=== PATIENT | female | born 1995 | race American Indian/Alaskan Native ===

== ENCOUNTER 2017-06-19 03:37 | Outpatient (CLI) | payer MEDICAID ==
[2017-06-19 06:05] VITALS: BP 104/59
[2017-06-20] MEDS ORDERED: NACL BACTERIOSTATIC INFILTRATI ONE (08:24)
== END 2017-06-19 04:30 | disposition home or self-care (01) ==
LOC: TRG 03:37
PROVIDERS: ATTEND Obstetrics & Gynecology
DX: O47.1 False labor at or after 37 completed weeks of gestation (principal); Z3A.37 37 weeks gestation of pregnancy

== ENCOUNTER 2017-06-29 15:19 | Inpatient (IN) | payer MEDICAID ==
[2017-06-29] MEDS ORDERED: MINERAL OIL PO PRN (15:31)
[2017-06-29] MEDS ORDERED: SUBLIMAZE IV PRN (15:31)
[2017-06-29] MEDS ORDERED: ZOFRAN IV PRN (15:31)
[2017-06-29] MEDS ORDERED: BRETHINE SUB-Q PRN (15:31)
[2017-06-29] MEDS ORDERED: ePHEDrine SULFATE IV PRN ×2 (15:31→18:03)
[2017-06-29] MEDS ORDERED: XYLOCAINE 2% INFILTRATI ONE (15:31)
--- NOTE | 2017-06-29 15:37 | History and Physical Report ---
History of Present Illness Date of examination: 06/29/17 Date of admission: 06/29/17 15:19 Chief complaint: 21 y/o @ 39+2 weeks, 7cms in office. History of present illness: EDC Calculations by LMP: 07/04/2017 Past History : 2 Term Births: 1 Premature Births: 0 Living Children: 1 Para: 1 Mult. Births: 0 Prev : 0 Prev. attempt? 0 Aborta: 0 Elect. Ab: 0 Spont. Ab: 0 Ectopics: 0 # 1 Delivery date: 02/20/2016 Weeks Gestation: 37 labor: no Delivery type: Hours of labor: 24 Anesthesia type: epidural Delivery location: [facility] Sex: Female weight: 6-0 Name: Anu Past Medical History: Asthma Family History Summary: Other family member - Has No Family History of Ovarvian Cancer - Entered On: Other family member - Has No Family History of Colon Cancer - Entered On: 2016 Other family member - Has No Family History of Breast Cancer - Entered On: 2016 Social History: Patient is single/engaged unemployed Risk Factors: Smoked Tobacco Use: Never smoker Drug use: yes Substance: marijuana Comments: Occsssionally Alcohol use: no Dietary Counseling: pn yes Past Medical History Abnormal PAP: negative Social Hx: Patient is single/engaged unemployed Infection History Hx of STD: none Active Medications (reviewed today): None Current Allergies (reviewed today): No known allergies Past History - Obstetrical History Expected Date of Delivery: 07/04/17 Actual Gestation: 39 Week(s) 2 Day(s) : 2 Para: 1 Hx # Term Pregnancies: 1 Number of Pregnancies: 0 Spontaneous Abortions: 0 Induced : 0 Number of Living Children: 1 Medications and Allergies Allergies Allergy/AdvReac Type Severity Reaction Status Date / Time No Known Drug Allergies Allergy Unknown Verified 02/19/16 23:54 Home Medications Medication Instructions Recorded Confirmed Last Taken Type Vit-Fe Fumar-FA [ 1 tab PO DAILY 06/19/17 06/19/17 06/18/17 10: 00 History Vitamin] Review of Systems All systems: negative - Physical Exam Breasts: Positive: normal Cardiovascular: Regular rate Lungs: Positive: Clear to auscultation, Normal air movement Abdomen: Positive: normal appearance, soft, normal bowel sounds Genitourinary (Female): Positive: normal external genitalia, normal perenium Vulva: both: normal Vagina: Positive: normal moisture Uterus: Positive: normal size Anus/Rectum: Positive: normal perianal skin Extremities: Positive: normal Deep Tendon Reflex Grade: Normal +2 - Obstetrical FHR: auscultation normal Uterine Contraction Monitor Mode: External Cervical Dilatation: 7 Cervical Effacement Percentage: 90 station: 0 Uterine Contraction Pattern: Irregular Uterine Tone Measurement Phase: Resting Results All other labs normal. Current OB Labs Blood Type: O (12/29/2016) Rh Type: positive (12/29/2016) Rh Antibody Screen: negative (12/29/2016) Hgb: 13.4 (12/29/2016) Hct: 40.0 (12/29/2016) Platelets: 229 (12/29/2016) Rubella: immune (12/29/2016) RPR: nonreactive (12/29/2016) Hep B Surface Antigen: negative (12/29/2016) Pap Smear: normal (12/29/2016) Patient: BOBBY BALDERRAMA ID: [id number] Note: All result statuses are Final unless otherwise noted. Tests: (1) Strep Gp B PETER ([id number]) Order Note: Clinical Information: SRC:VR ! Strep Gp B PETER Negative Negative *1 Assessment and Plan 21y/o @ 39+2, labor, GBS neg, late transfer of care to our practice. Admission orders in chart. plan for epidural BILLY. - Patient Problems (1) Active labor at term Current Visit: Yes Status: Acute (2) 39 weeks gestation of Current Visit: Yes Status: Acute
[2017-06-29] MEDS ORDERED: PITOCin/NS 20 UNIT/1000ML DRIP 20 UNITS/1,000 ML BAG IV SCH ×2 (16:00→20:59)
[2017-06-29] MEDS ORDERED: PITOCin/NS 30 UNIT/500ML 30 UNITS/500 ML BAG IV SCH (16:00)
[2017-06-29 16:32] LABS: Hematocrit 31.3 % (30.3-42.9); Hemoglobin 10.5 gm/dl (10.1-14.3); Mean Corpuscular HGB Conc 33 % (30-34); Mean Corpuscular Hemoglobin 28 pg (28-32); Mean Corpuscular Volume 83 fl (79-97); Platelet Count 203 K/mm3 (140-440); Red Blood Count 3.79 M/mm3 (3.65-5.03); Red Cell Distribution Width 14.8 % (13.2-15.2); White Blood Count 8.5 K/mm3 (4.5-11.0)
[2017-06-29] MEDS: LACTATED RINGERS 1,000 ML IV SCH ×2 (17:13→17:35)
[2017-06-29] MEDS ORDERED: NARCAN 2 MG/2 ML IV PRN (18:03)
--- NOTE | 2017-06-29 18:03 | Anesthesia Consultation ---
Anesthesia Consult and Med Hx Date of service: 06/29/17 - Airway Anesthetic Teeth Evaluation: Good ROM Head & Neck: Adequate Mental/Hyoid Distance: Adequate Intubation Access Assessment: Probably Good - Pre-Operative Health Status ASA Pre-Surgery Classification: ASA2, Emergency Proposed Anesthetic Plan: Epidural, Spinal - Pulmonary Hx Asthma: No COPD: No Hx Pneumonia: No - Cardiovascular System Hx Hypertension: No - Central Nervous System Hx Seizures: No Hx Psychiatric Problems: No - Endocrine Hx Renal Disease: No Hx End Stage Renal Disease: No Hx Hypothyroidism: No Hx Hyperthyroidism: No - Hematic Hx Anemia: No Hx Sickle Cell Disease: No - Other Systems Hx Alcohol Use: No
[2017-06-29] MEDS ORDERED: CYTOTEC PR ONE (18:50)
[2017-06-29] MEDS ORDERED: CYTOTEC ONE (18:50)
--- NOTE | 2017-06-29 18:55 | Procedure Note ---
OB Delivery Note - Delivery Date of Delivery: 06/29/17 ( Male) [employer] Agent: PAPA NICOLE Estimated blood loss: 500cc - Vaginal Delivery presentation: vertex Delivery position: OA Intrapartum events: hemorrhage Delivery induction: none Delivery augmentation: rupture of membranes, pitocin Delivery monitor: external FHT, external uterine Route of delivery: Delivery placenta: spontaneous Delivery cord: 3 umbilical vessels Episiotomy: none Delivery laceration: none Anesthesia: epidural Delivery comments: male del OLMAN over intact perineum. placed skin to skin on mother' s abd, 3 vessel cord clamped and cut, cord blood collected. placenta del intact and complete. no lacerations to repair. fundus initially firm but became boggy, firmed w/ massage. 800mcg Cytotec placed rectally. EBL 500. infant's apgars 8/9, wt 7#4oz. mother and infant remain LDR stable. - A at 1 minute: 8 at 5 minutes: 9 Infant Gender: Male (7#4oz)
[2017-06-29] MEDS ORDERED: fentaNYL-BUPIV 2 MCG/ML-0.125% 200 MCG/100 ML BAG EPIDURAL SCH (19:00)
[2017-06-29] MEDS ORDERED: TUCKS PAD TP PRN (20:59)
[2017-06-29] MEDS ORDERED: NORCO 5/325 PO PRN (20:59)
[2017-06-29] MEDS ORDERED: SODIUM CHLORIDE FLUSH SYRINGE 10 ML IV PRN (20:59)
[2017-06-29] MEDS ORDERED: MILK OF MAGNESIA PO PRN (20:59)
[2017-06-29] MEDS ORDERED: PHENERGAN PO PRN (20:59)
[2017-06-29] MEDS ORDERED: BENADRYL PO PRN (20:59)
[2017-06-29] MEDS ORDERED: DULCOLAX PR PRN (20:59)
[2017-06-29] MEDS ORDERED: TYLENOL PO PRN (20:59)
[2017-06-29] MEDS ORDERED: LANSINOH TP PRN (20:59)
[2017-06-29] MEDS: MOTRIN PO SCH (21:13)
[2017-06-29] MEDS: COLACE PO SCH (21:13)
[2017-06-30] MEDS: MOTRIN PO SCH ×3 (04:03→18:07)
[2017-06-30 07:31] LABS: Hematocrit 29.6 % (30.3-42.9); Hemoglobin 9.5 gm/dl (10.1-14.3)
[2017-06-30] MEDS ORDERED: PRENATAL VITAMIN PO SCH (10:00)
[2017-06-30] MEDS: COLACE PO SCH (11:21)
[2017-06-30] MEDS ORDERED: Fluarix Quad 2017-2018(36 MOS+) IM ONE (12:00)
--- NOTE | 2017-06-30 14:19 | Discharge Summary ---
Providers - Providers Date of Admission: 06/29/17 15:19 Date of discharge: 06/30/17 Attending physician: JESSICA GONZALEZ 06/29/17 20:59 Consult to Undercoat Sprayer [CONS] Routine Reason For Exam: assistance with , SNS Primary care physician: JESSICA GONZALEZ Hospitalization Condition: Good Hospital course: see dictation Disposition: DC-01 TO HOME OR SELFCARE - Discharge Diagnoses (1) (normal spontaneous vaginal delivery) Status: Acute Core Measure Documentation - Palliative Care Palliative Care/ Comfort Measures: Not Applicable - Core Measures Any of the following diagnoses?: none Exam - Physical Exam Narrative exam: No complaints, minimal bleeding, desires d/c home, will use depoprovera for contraception starting at 6weeks PP States she will not have her son circumcised - Constitutional Vitals: Temp Pulse Resp BP Pulse Ox 98.4 F 89 20 115/80 99 06/30/17 08:02 06/30/17 08:02 06/30/17 08:02 06/30/17 08:02 06/30/17 08:02 General appearance: Present: no acute distress (Breasts soft, NT, no engorgement , ) - Respiratory Respiratory effort: normal - Extremities Extremities: no ischemia, No edema - Abdominal Female genitourinary: Present: deferred (uterus below her umbilicus) - Rectal Rectal Exam: deferred - Integumentary Integumentary: Present: clear, warm, dry Plan Activity: other (No sex) Weight Bearing Status: Weight Bear as Tolerated Diet: regular Special Instructions: no heavy lifting Follow up with: JESSICA GONZALEZ MD [Primary Care Provider] - 6 Weeks Prescriptions: Ibuprofen [Motrin 800 MG tab] 800 mg PO Q8HR PRN #30 tablet PRN Reason: Pain Lidocain2.5%/Prilocai2.5% [Emla] 5 gm TP ONCE PRN #1 tube PRN Reason: Pain
[2017-06-30 19:19] VITALS: BP 115/81
[2017-07-01] MEDS ORDERED: BOOSTRIX IM ONE (06:00)
== END 2017-06-30 20:00 | disposition home or self-care (01) | DRG 775 ==
LOC: LD 15:19 → OB 21:01
PROVIDERS: ADMIT Obstetrics & Gynecology; ATTEND Obstetrics & Gynecology
PROC: 10E0XZZ Delivery of Products of Conception, External Approach (ICD-10-PCS; principal; 2017-06-29)
PROC: 3E0R3CZ (ICD-10-PCS; principal; 2017-06-29)
PROC: 00HU33Z Insertion of Infusion Device into Spinal Canal, Percutaneous Approach (ICD-10-PCS; 2017-06-29)
PROC: 3E0234Z Introduction of Serum, Toxoid and Vaccine into Muscle, Percutaneous Approach (ICD-10-PCS; 2017-06-29)
DX: O99.52 Diseases of the respiratory system complicating childbirth (principal); Z3A.39 39 weeks gestation of pregnancy; Z37.0 Single live birth; Z23 Encounter for immunization; O99.324 Drug use complicating childbirth; F12.90 Cannabis use, unspecified, uncomplicated
CPT/HCPCS: 36415; 85014; 85018; 85027; 86592; 86850; 86900; 86901; 90686; A6250; J2590; J7120

== ENCOUNTER 2018-06-11 20:40 | Emergency (ER) | payer MEDICAID ==
[2018-06-11] MEDS ORDERED: MOTRIN PO ONE ×2 (20:59→21:06)
[2018-06-11 21:06] VITALS: BP 122/80
[2018-06-11 21:40] LABS: Bacteria,Urine 1+ /HPF (Negative); Bilirubin,Urine NEG (Negative); Blood,Urine NEG (Negative); Color,Urine Yellow (Yellow); Mucus,Urine FEW /HPF; Protein,Urine <15 mg/dL mg/dL (Negative)
[2018-06-11 21:42] LABS: HCG Qualitative,Urine Negative (Negative)
--- NOTE | 2018-06-12 00:20 | Emergency Department Report ---
ED ENT HPI - General Chief complaint: Sore Throat Stated complaint: FLU LIKE SYMPTOMS Time Seen by Provider: 06/12/18 00:12 Source: patient Mode of arrival: Ambulatory Limitations: No Limitations - History of Present Illness Initial comments: 22-year-old female presents to the emergency room for 2 days of bilateral ear pain bodyaches sore throat fever and back pain. Patient denies any cough. Patient does admit that she has been drinking a lot for Coca- [employer]. He did not take anything for pain. She's had a subjective fever. MD complaint: sore throat Severity scale (0 -10): 9 (prior to pain medication) Quality: aching Consistency: intermittent Improves with: NSAID - Related Data Home Medications Medication Instructions Recorded Confirmed Last Taken Vit-Fe Fumar-FA [ 1 tab PO DAILY 06/19/17 06/30/17 06/18/17 10: 00 Vitamin] Previous Rx's Medication Instructions Recorded Last Taken Type Ibuprofen [Motrin 800 MG tab] 800 mg PO Q8HR PRN #30 tablet 06/29/17 Unknown Rx Lidocain2.5%/Prilocai2.5% [Emla] 5 gm TP ONCE PRN #1 tube 06/29/17 Unknown Rx Ibuprofen [Motrin 600 MG tab] 600 mg PO Q8H PRN #15 tablet 06/12/18 Unknown Rx Nitrofurantoin [place]/M-Cryst 100 mg PO Q12HR #14 capsule 06/12/18 Unknown Rx [Macrobid CAP] Allergies Allergy/AdvReac Type Severity Reaction Status Date / Time No Known Drug Allergies Allergy Unknown Verified 02/19/16 23:54 ED Dental HPI - General Chief complaint: Sore Throat Stated complaint: FLU LIKE SYMPTOMS Time Seen by Provider: 06/12/18 00:12 Source: patient Mode of arrival: Ambulatory Limitations: No Limitations - Related Data Home Medications Medication Instructions Recorded Confirmed Last Taken Vit-Fe Fumar-FA [ 1 tab PO DAILY 06/19/17 06/30/17 06/18/17 10: 00 Vitamin] Previous Rx's Medication Instructions Recorded Last Taken Type Ibuprofen [Motrin 800 MG tab] 800 mg PO Q8HR PRN #30 tablet 06/29/17 Unknown Rx Lidocain2.5%/Prilocai2.5% [Emla] 5 gm TP ONCE PRN #1 tube 06/29/17 Unknown Rx Ibuprofen [Motrin 600 MG tab] 600 mg PO Q8H PRN #15 tablet 06/12/18 Unknown Rx Nitrofurantoin [place]/M-Cryst 100 mg PO Q12HR #14 capsule 06/12/18 Unknown Rx [Macrobid CAP] Allergies Allergy/AdvReac Type Severity Reaction Status Date / Time No Known Drug Allergies Allergy Unknown Verified 02/19/16 23:54 ED Review of Systems ROS: Stated complaint: FLU LIKE SYMPTOMS Other details as noted in HPI Constitutional: fever (subjective), malaise ENT: ear pain (only with swallowing and has resolved since she's had Motrin), throat pain (resolved) Respiratory: denies: cough Gastrointestinal: denies: abdominal pain, nausea, diarrhea Musculoskeletal: back pain Neurological: denies: headache, weakness, paresthesias Psychiatric: denies: anxiety, depression Hematological/Lymphatic: denies: easy bleeding, easy bruising ED Past Medical Hx - Past Medical History Previous Medical History?: Yes Hx Hypertension: No Hx Congestive Heart Failure: No Hx Diabetes: No Hx Deep Vein Thrombosis: No Hx Renal Disease: No Hx Sickle Cell Disease: No Hx Seizures: No Hx Asthma: Yes Hx COPD: No Hx HIV: No - Surgical History Past Surgical History?: No - Social History Smoking Status: Never Smoker Substance Use Type: None - Medications Home Medications: Home Medications Medication Instructions Recorded Confirmed Last Taken Type Vit-Fe Fumar-FA [ 1 tab PO DAILY 06/19/17 06/30/17 06/18/17 10: 00 History Vitamin] Ibuprofen [Motrin 800 MG tab] 800 mg PO Q8HR PRN #30 tablet 06/29/17 Unknown Rx Lidocain2.5%/Prilocai2.5% [Emla] 5 gm TP ONCE PRN #1 tube 06/29/17 Unknown Rx Ibuprofen [Motrin 600 MG tab] 600 mg PO Q8H PRN #15 tablet 06/12/18 Unknown Rx Nitrofurantoin [place]/M-Cryst 100 mg PO Q12HR #14 capsule 06/12/18 Unknown Rx [Macrobid CAP] ED Physical Exam - General Limitations: No Limitations General appearance: alert, in no apparent distress - Head Head exam: Present: atraumatic, normocephalic - Eye Eye exam: Present: normal appearance - ENT ENT exam: Present: mucous membranes moist - Expanded ENT Exam Expanded Throat exam: Positive: tonsillar erythema, tonsillomegaly - Neck Neck exam: Present: normal inspection - Respiratory Respiratory exam: Present: normal lung sounds bilaterally. Absent: respiratory distress - Cardiovascular Cardiovascular Exam: Present: regular rate, normal rhythm. Absent: systolic murmur, diastolic murmur, rubs, gallop - GI/Abdominal GI/Abdominal exam: Present: soft, normal bowel sounds - Extremities Exam Extremities exam: Present: normal inspection - Back Exam Back exam: Present: normal inspection - Neurological Exam Neurological exam: Present: alert, oriented X3 - Psychiatric Psychiatric exam: Present: normal affect, normal mood - Skin Skin exam: Present: warm, dry, intact, normal color. Absent: rash ED Course Vital Signs 06/11/18 21:00 Temperature 99.2 F Pulse Rate 105 H Respiratory 16 Rate Blood Pressure 122/80 O2 Sat by Pulse 100 Oximetry - Reevaluation(s) Reevaluation #1: 06/12/18 00:25 Patient reports her symptoms have improved since having ibuprofen. ED Medical Decision Making - Lab Data Laboratory Results - last 24 hr 06/11/18 06/11/18 Unknown Unknown Urine Color Yellow Urine Turbidity Cloudy Urine pH 5.0 Ur Specific Bells 1.023 Urine Protein <15 mg/dl Urine Glucose (UA) Neg Urine Ketones 20 Urine Blood Neg Urine Nitrite Neg Urine Bilirubin Neg Urine Urobilinogen 2.0 Ur Leukocyte Esterase Tr Urine WBC (Auto) 11.0 H Urine RBC (Auto) 2.0 U Epithel Cells (Auto) 59.0 H Urine Bacteria (Auto) 1+ Urine Mucus Few Urine HCG, Qual Negative Group A Strep Rapid Negative - Medical Decision Making Patient has been evaluated by this provider fast track. Ibuprofen given in triage Rapid strep and urinalysis completed Rapid strep negative urinalysis shows mild elevation of WBCs with esterase trace. Would treat patient for a urinary tract infection discussed patient to increase her water intake decrease her Coca-Cola intake take ibuprofen for pain management. She verbalized understanding. Critical care attestation.: If time is entered above; I have spent that time in minutes in the direct care of this critically ill patient, excluding procedure time. ED Disposition Clinical Impression: Pharyngitis with viral syndrome UTI (urinary tract infection) Qualifiers: Urinary tract infection type: site unspecified Hematuria presence: without hematuria Qualified Code(s): N39.0 - Urinary tract infection, site not specified Disposition: DC-01 TO HOME OR SELFCARE Is pt being admited?: No Does the pt Need Aspirin: No Condition: Stable Instructions: Urinary Tract Infection in Women (ED) Additional Instructions: Please complete antibiotics as prescribed. Please increase her water intake by 2 L a day. Please discontinue drinking Coca-Cola's. Take pain medication as needed. Follow-up with the primary care provider if symptoms persist or gets worse. Prescriptions: Ibuprofen [Motrin 600 MG tab] 600 mg PO Q8H PRN #15 tablet PRN Reason: Pain Nitrofurantoin [place]/M-Cryst [Macrobid CAP] 100 mg PO Q12HR #14 capsule Referrals: PRIMARY CARE, [Primary Care Provider] - 3-5 Days Forms: Work/School Release Form(ED)
[2018-06-12] MEDS ORDERED: MACROBID PO ONE (00:25)
== END 2018-06-12 00:50 | disposition home or self-care (01) ==
LOC: ED 20:40
DX: B34.9 Viral infection, unspecified (principal); N39.0 Urinary tract infection, site not specified; J02.9 Acute pharyngitis, unspecified; H92.03 Otalgia, bilateral
CPT/HCPCS: 81001; 81025; 87116; 87430; 99283

== ENCOUNTER 2021-03-09 19:53 | Emergency (ER) | payer MEDICAID ==
--- NOTE | 2021-03-09 21:27 | Event Note ---
ED Screening Note ED Screening Note: cp off and on for 1 year smoker/nicotine was on depo and she thought that was the cause childhood asthma This initial assessment/diagnostic orders/clinical plan/treatment(s) is/are subject to change based on patients health status, clinical progression and re- assessment by fellow clinical providers in the ED. Further treatment and workup at subsequent clinical providers discretion. Patient/guardian urged not to elope from the ED as their condition may be serious if not clinically assessed and managed. Initial orders include: ekg labs ro PE
[2021-03-09 21:29] VITALS: BP 136/88
[2021-03-09 21:46] LABS: Hematocrit 40.8 % (30.3-42.9); Mean Corpuscular HGB Conc 34 % (30-34); Mean Corpuscular Volume 90 fl (79-97); Platelet Count 217 K/mm3 (140-440); Red Blood Count 4.53 M/mm3 (3.65-5.03); Red Cell Distribution Width 12.7 % (13.2-15.2)
[2021-03-09 22:09] LABS: Alanine Aminotransferase 7 units/L (7-56); Albumin 5.1 g/dL (3.9-5); BUN/Creatinine Ratio 18; Blood Urea Nitrogen 14 mg/dL (7-17); Calcium 10.1 mg/dL (8.4-10.2); Hemolysis Index 7
[2021-03-09] MEDS ORDERED: SODIUM CHLORIDE 0.9% 1000 ML 1,000 ML IV ONE (22:10)
--- NOTE | 2021-03-09 23:43 | Cat Scan Report ---
CTA CHEST WITH IV CONTRAST INDICATION / CLINICAL INFORMATION: Patient complains of Pleuritic chest pain with Tachycardia. TECHNIQUE: Axial CT images were obtained through the chest after injection of 100 cc IV contrast. 3 plane MIP an d/or 3D reconstructions were produced. All CT scans at this location are performed using CT dose redu ction for [facility] by means of automated exposure control. COMPARISON: Chest radiographs performed earlier today. FINDINGS: PULMONARY ARTERIES: No pulmonary emboli. THORACIC AORTA: No significant abnormality. HEART: No significant abnormality. CORONARY ARTERIES: No significant calcification. PLEURA: No pleural effusion. No pneumothorax. LYMPH NODES: No significant adenopathy. LUNGS: No acute air space or interstitial disease. ADDITIONAL FINDINGS: None. UPPER ABDOMEN: No acute findings. SKELETAL STRUCTURES: No significant osseous abnormality. IMPRESSION: 1. No CT evidence for pulmonary embolism. 2. No acute pulmonary disease. Signer Name: Vanda Méndez MD Signed: 03/09/2021 11:39 PM Workstation Name: [id number]
--- NOTE | 2021-03-09 23:45 | XRay Report ---
CHEST 2 VIEWS INDICATION / CLINICAL INFORMATION: chest pain. COMPARISON: None available. FINDINGS: SUPPORT DEVICES: None. HEART / MEDIASTINUM: No significant abnormality. LUNGS / PLEURA: No significant pulmonary or pleural abnormality. No pneumothorax. ADDITIONAL FINDINGS: No significant additional findings. IMPRESSION: 1. No significant abnormality. Signer Name: Vanda Méndez MD Signed: 03/09/2021 11:40 PM Workstation Name: [id number]
--- NOTE | 2021-03-10 01:55 | Emergency Department Report ---
ED General Adult HPI - General Chief complaint: Chest Pain Stated complaint: CHEST PAIN Time Seen by Provider: 03/09/21 21:37 Source: patient Mode of arrival: Ambulatory Limitations: No Limitations - History of Present Illness Initial comments: 25-year-old male female presents emerged department complaining of a 1-1/2 to 3- year history of left-sided chest pain which is progressively worsening over the past few months. States that when she initially the pain was substernal and worse with palpation at that time she did take up smoking for about a year but has quit over the last 6 to 9 months but states that the symptoms continue. Pain is worse with palpation and range of motion and deep breath but she reports no hemoptysis, no hematemesis, no nausea, no vomiting, no diarrhea, no fevers, chills, sweats, no foreign travel no known contact with the coronavirus and no known traumatic injuries. Location: chest Radiation: non-radiation Quality: dull Consistency: constant Improves with: none Worsens with: none Associated Symptoms: chest pain. denies: cough, diaphoresis, loss of appetite, malaise, nausea/vomiting, shortness of breath, syncope, weakness Treatments Prior to Arrival: none - Related Data Home Medications Medication Instructions Recorded Confirmed Last Taken Vit-Fe Fumar-FA [ 1 tab PO DAILY 06/19/17 06/30/17 06/18/17 10:00 Vitamin] Previous Rx's Medication Instructions Recorded Last Taken Type Ibuprofen [Motrin 800 MG tab] 800 mg PO Q8HR PRN #30 tablet 06/29/17 Unknown Rx Lidocain2.5%/Prilocai2.5% [Emla] 5 gm TP ONCE PRN #1 tube 06/29/17 Unknown Rx Ibuprofen [Motrin 600 MG tab] 600 mg PO Q8H PRN #15 tablet 06/12/18 Unknown Rx Nitrofurantoin [place]/M-Cryst 100 mg PO Q12HR #14 capsule 06/12/18 Unknown Rx [Macrobid CAP] Ketorolac [Toradol] 10 mg PO Q6H PRN #14 tablet 03/10/21 Unknown Rx Allergies Allergy/AdvReac Type Severity Reaction Status Date / Time No Known Drug Allergies Allergy Unknown Verified 02/19/16 23:54 ED Review of Systems ROS: Stated complaint: CHEST PAIN Other details as noted in HPI Comment: All other systems reviewed and negative ED Past Medical Hx - Past Medical History Hx Hypertension: No Hx Congestive Heart Failure: No Hx Diabetes: No Hx Deep Vein Thrombosis: No Hx Renal Disease: No Hx Sickle Cell Disease: No Hx Seizures: No Hx Asthma: Yes Hx COPD: No Hx HIV: No - Social History Smoking Status: Former Smoker Substance Use Type: Alcohol - Medications Home Medications: Home Medications Medication Instructions Recorded Confirmed Last Taken Type Vit-Fe Fumar-FA [ 1 tab PO DAILY 06/19/17 06/30/17 06/18/17 10:00 History Vitamin] Ibuprofen [Motrin 800 MG tab] 800 mg PO Q8HR PRN #30 tablet 06/29/17 Unknown Rx Lidocain2.5%/Prilocai2.5% [Emla] 5 gm TP ONCE PRN #1 tube 06/29/17 Unknown Rx Ibuprofen [Motrin 600 MG tab] 600 mg PO Q8H PRN #15 tablet 06/12/18 Unknown Rx Nitrofurantoin [place]/M-Cryst 100 mg PO Q12HR #14 capsule 06/12/18 Unknown Rx [Macrobid CAP] Ketorolac [Toradol] 10 mg PO Q6H PRN #14 tablet 03/10/21 Unknown Rx ED Physical Exam - General Limitations: No Limitations General appearance: alert, in no apparent distress - Head Head exam: Present: atraumatic, normocephalic - Eye Eye exam: Present: normal appearance, PERRL, EOMI Pupils: Present: normal accommodation - ENT ENT exam: Present: normal exam, normal orophraynx, mucous membranes moist, TM's normal bilaterally - Neck Neck exam: Present: normal inspection - Respiratory Respiratory exam: Present: normal lung sounds bilaterally, chest wall tenderness (Chest). Absent: respiratory distress, wheezes, rales, rhonchi - Cardiovascular Cardiovascular Exam: Present: regular rate, normal rhythm. Absent: bradycardia, tachycardia, systolic murmur, diastolic murmur, rubs, gallop - GI/Abdominal GI/Abdominal exam: Present: soft, normal bowel sounds. Absent: tenderness, g uarding, rebound, hypoactive bowel sounds, organomegaly, mass, bruit - Extremities Exam Extremities exam: Present: normal inspection, normal capillary refill - Back Exam Back exam: Present: normal inspection. Absent: CVA tenderness (R), CVA tenderness (L) - Neurological Exam Neurological exam: Present: alert, oriented X3, CN II-XII intact, normal gait - Psychiatric Psychiatric exam: Present: normal affect, normal mood. Absent: depressed, agitated, anxious, flat affect, manic, homicidal ideation - Skin Skin exam: Present: warm, dry, intact, normal color. Absent: rash ED Course Vital Signs 03/09/21 21:23 Temperature 98.9 F Pulse Rate 110 H Respiratory 18 Rate Blood Pressure 136/88 O2 Sat by Pulse 100 Oximetry ED Medical Decision Making - Lab Data Result diagrams: 03/09/21 21:35 03/09/21 21:35 - Medical Decision Making This patient presents with chest pain that is very unlikely angina or acute coronary syndrome. The emergency department evaluation has not identified any cause for suspicion that this chest pain has a cardiac etiology. Based on their history, EKG (which showed no evidence of ischemia or infarction) and imaging, in addition to the patient's physical exam, I see no evidence at this time for a malignant etiology for the patient's chest pain. There is no acute evidence for pulmonary embolus, acute myocardial infarction, pneumothorax, Boerhaeve syndrome, cardiac tamponade, thoracic artery dissection, or any other emergent cardiac, pulmonary or aortic pathology. Given the low pre-test probability for cardiac etiology of chest pain and the absence of any sign of ischemia or infarction, discharge for outpatient follow-up and further evaluation is reasonable. I have explained to the patient that even though a cardiac problem is very unlikely, follow-up and further testing is required to reduce further the already small uncertainty that exists. Other life-threatening diagnoses have been considered. The patient understands the need to return immediately if their symptoms worsen or they develop any new symptoms, and not to engage in any significant exertional activity until follow-up is obtained. Critical care attestation.: If time is entered above; I have spent that time in minutes in the direct care of this critically ill patient, excluding procedure time. ED Disposition Clinical Impression: Costochondritis Disposition: DC-01 TO HOME OR SELFCARE Is pt being admited?: No Does the pt Need Aspirin: No Condition: Stable Instructions: Costochondritis Prescriptions: Ketorolac [Toradol] 10 mg PO Q6H PRN #14 tablet PRN Reason: Pain Referrals: [facility] [Provider Group] - 3-5 Days PRIMARY CARE, [Primary Care Provider] - 3-5 Days
--- NOTE | 2021-03-17 11:03 | Electrocardiograph Report ---
[facility] Test Date: 2021-03-09 Test Time: 21:33:31 Pat Name: BOBBY BALDERRAMA Department: Room: Gender: F Physician Assistant Psychiatry: DHAVAL : 1995 Requested By: DENISE ROSALES Order Number: [id number] Reading MD: Timothy Jenkins Measurements Intervals [place] Rate: 99 P: 66 MO: 137 QRS: 9 QRSD: 80 T: 53 QT: 341 QTc: 439 Interpretive Statements Sinus rhythm Probable left atrial enlargement Possible old anteroseptal infarct No previous ECG available for comparison Electronically Signed On 03-17-2021 11:03:14 EDT by Timothy Jenkins
== END 2021-03-10 02:15 | disposition home or self-care (01) ==
LOC: ED 19:53
DX: M94.0 Chondrocostal junction syndrome [Tietze] (principal); J45.909 Unspecified asthma, uncomplicated; Z79.899 Other long term (current) drug therapy; Z87.891 Personal history of nicotine dependence
CPT/HCPCS: 36415; 71046; 71275; 80053; 84443; 84703; 85027; 93005; 99284; Q9967; J7030

== ENCOUNTER 2022-02-20 17:51 | Emergency (ER) | payer MEDICAID ==
[2022-02-20 21:08] LABS: Bilirubin,Urine NEG (Negative); Blood,Urine NEG (Negative); Color,Urine Straw (Yellow); Protein,Urine <15 mg/dL mg/dL (Negative); Urobilinogen,Urine < 2.0 mg/dL (<2.0); WBC,Urine < 1.0 /HPF (0.0-6.0)
[2022-02-20 21:29] LABS: Basophils % (Auto) 0.5 % (0.0-1.8); Eosinophils # (Auto) 0.1 K/mm3 (0.0-0.4); Eosinophils % (Auto) 1.3 % (0.0-4.3); Hematocrit 40.7 % (30.3-42.9); Hemoglobin 13.6 gm/dl (10.1-14.3); Lymphocytes # (Auto) 2.8 K/mm3 (1.2-5.4); Lymphocytes % (Auto) 46.1 % (13.4-35.0); Mean Corpuscular HGB Conc 33 % (30-34); Mean Corpuscular Volume 89 fl (79-97); Monocytes # (Auto) 0.5 K/mm3 (0.0-0.8); Monocytes % (Auto) 8.2 % (0.0-7.3); Platelet Count 211 K/mm3 (140-440); Red Blood Count 4.56 M/mm3 (3.65-5.03); Red Cell Distribution Width 13.4 % (13.2-15.2)
[2022-02-20 21:48] LABS: Alanine Aminotransferase 7 units/L (7-56); Albumin 5.1 g/dL (3.9-5); Blood Urea Nitrogen 14 mg/dL (7-17); Calcium 9.8 mg/dL (8.4-10.2); Hemolysis Index 8
[2022-02-20 22:09] LABS: BUN/Creatinine Ratio 20
[2022-02-21] MEDS ORDERED: FAMOTIDINE 20 MG/2 ML INJ IV ONE (01:47)
[2022-02-21] MEDS ORDERED: SODIUM CHLORIDE 0.9% 1000 ML 1,000 ML IV ONE (01:47)
[2022-02-21] MEDS ORDERED: KETOROLAC 30 MG/1 ML INJ IV ONE (01:47)
[2022-02-21] MEDS ORDERED: ONDANSETRON 4 MG/2 ML INJ IV ONE (01:47)
--- NOTE | 2022-02-21 02:36 | Emergency Department Report ---
ED N/V/D HPI - General Chief complaint: Nausea/Vomiting/Diarrhea Stated complaint: NAUSEA/VOMITTING Source: patient Mode of arrival: Ambulatory Limitations: No Limitations - History of Present Illness Initial comments: Patient is a 26-year-old -[place] female with a history of asthma presents to the ED with complaint of acute onset persistent intermittent nausea and vomiting with epigastric pain for the last 12 hours after eating fast food from a restaurant. Patient states that he has not been able to keep anything down in the last 8 hours due to persistent intractable nausea and vomiting. Patient denies hematemesis, hematochezia, diarrhea, dysuria, urinary frequency and urgency, chest pain or shortness of breath, fever, chills, cough, sore throat, headache, lightheadedness, dizziness, syncope, cough or headache. MD complaint: nausea, vomiting, abdominal pain (Epigastric) -: Sudden, hour(s) (12) Description of Vomiting: food contents, watery, bilious Associated Abdominal Pain: Yes (epigastric) Location: epigastric Radiation: none Severity: moderate Pain Scale: 6 Quality: cramping, sharp Consistency: intermittent Improves with: none Worsens with: eating, vomiting Context: possible food poisoning Associated Symptoms: denies other symptoms, loss of appetite, malaise, nausea/vomiting. denies: myalgias, chest pain, cough, diaphoresis, fever/chills, headaches, rash, dysuria, shortness of breath, syncope - Related Data Home Medications Medication Instructions Recorded Confirmed Last Taken Vit-Fe Fumar-FA [ 1 tab PO DAILY 06/19/17 06/30/17 06/18/17 10:00 Vitamin] Previous Rx's Medication Instructions Recorded Last Taken Type Ibuprofen [Motrin 800 MG tab] 800 mg PO Q8HR PRN #30 tablet 06/29/17 Unknown Rx Lidocain2.5%/Prilocai2.5% [Emla] 5 gm TP ONCE PRN #1 tube 06/29/17 Unknown Rx Ibuprofen [Motrin 600 MG tab] 600 mg PO Q8H PRN #15 tablet 06/12/18 Unknown Rx Nitrofurantoin Castro/M-Cryst 100 mg PO Q12HR #14 capsule 06/12/18 Unknown Rx [Macrobid CAP] Ketorolac [Toradol] 10 mg PO Q6H PRN #14 tablet 03/10/21 Unknown Rx Dicyclomine [Bentyl] 20 mg PO Q6H PRN #24 tablet 02/21/22 Unknown Rx Famotidine [Pepcid] 20 mg PO BID #30 tablet 02/21/22 Unknown Rx Ondansetron [Zofran Odt] 4 mg PO Q8HR PRN #20 tab.rapdis 02/21/22 Unknown Rx Allergies Allergy/AdvReac Type Severity Reaction Status Date / Time No Known Drug Allergies Allergy Unknown Verified 02/19/16 23:54 ED Review of Systems ROS: Stated complaint: NAUSEA/VOMITTING Other details as noted in HPI Constitutional: denies: chills, fever Eyes: denies: eye pain, eye discharge, vision change ENT: denies: ear pain, throat pain Respiratory: denies: cough, shortness of breath, wheezing Cardiovascular: denies: chest pain, palpitations Endocrine: no symptoms reported Gastrointestinal: abdominal pain, nausea, vomiting. denies: diarrhea Genitourinary: denies: urgency, dysuria, discharge Musculoskeletal: denies: back pain, joint swelling, arthralgia Skin: denies: rash, lesions Neurological: denies: headache, weakness, paresthesias Psychiatric: denies: anxiety, depression Hematological/Lymphatic: denies: easy bleeding, easy bruising ED Past Medical Hx - Past Medical History Hx Hypertension: No Hx Congestive Heart Failure: No Hx Diabetes: No Hx Deep Vein Thrombosis: No Hx Renal Disease: No Hx Sickle Cell Disease: No Hx Seizures: No Hx Asthma: Yes Hx COPD: No Hx HIV: No - Social History Smoking Status: Former Smoker Substance Use Type: Alcohol - Medications Home Medications: Home Medications Medication Instructions Recorded Confirmed Last Taken Type Vit-Fe Fumar-FA [ 1 tab PO DAILY 06/19/17 06/30/17 06/18/17 10:00 History Vitamin] Ibuprofen [Motrin 800 MG tab] 800 mg PO Q8HR PRN #30 tablet 06/29/17 Unknown Rx Lidocain2.5%/Prilocai2.5% [Emla] 5 gm TP ONCE PRN #1 tube 06/29/17 Unknown Rx Ibuprofen [Motrin 600 MG tab] 600 mg PO Q8H PRN #15 tablet 06/12/18 Unknown Rx Nitrofurantoin Castro/M-Cryst 100 mg PO Q12HR #14 capsule 06/12/18 Unknown Rx [Macrobid CAP] Ketorolac [Toradol] 10 mg PO Q6H PRN #14 tablet 03/10/21 Unknown Rx Dicyclomine [Bentyl] 20 mg PO Q6H PRN #24 tablet 02/21/22 Unknown Rx Famotidine [Pepcid] 20 mg PO BID #30 tablet 02/21/22 Unknown Rx Ondansetron [Zofran Odt] 4 mg PO Q8HR PRN #20 tab.rapdis 02/21/22 Unknown Rx ED Physical Exam - General Limitations: No Limitations General appearance: alert, in no apparent distress - Head Head exam: Present: atraumatic, normocephalic, normal inspection - Eye Eye exam: Present: normal appearance, PERRL, EOMI Pupils: Present: normal accommodation - ENT ENT exam: Present: normal exam, normal orophraynx, mucous membranes moist, TM's normal bilaterally, normal external ear exam - Neck Neck exam: Present: normal inspection, full ROM. Absent: tenderness - Respiratory Respiratory exam: Present: normal lung sounds bilaterally. Absent: respiratory distress, wheezes, rhonchi, stridor, chest wall tenderness - Cardiovascular Cardiovascular Exam: Present: regular rate, normal rhythm, normal heart sounds. Absent: systolic murmur, diastolic murmur, rubs, gallop - GI/Abdominal GI/Abdominal exam: Present: soft, normal bowel sounds. Absent: tenderness, guarding, rebound, hyperactive bowel sounds, hypoactive bowel sounds, organomegaly, mass - Extremities Exam Extremities exam: Present: normal inspection, full ROM, normal capillary refill - Back Exam Back exam: Present: normal inspection, full ROM. Absent: tenderness, CVA tenderness (R), CVA tenderness (L), muscle spasm, paraspinal tenderness, vertebral tenderness - Neurological Exam Neurological exam: Present: alert, oriented X3, CN II-XII intact, normal gait, reflexes normal - Psychiatric Psychiatric exam: Present: normal affect, normal mood - Skin Skin exam: Present: warm, dry, intact, normal color. Absent: rash ED Medical Decision Making - Lab Data Result diagrams: 02/20/22 21:06 02/20/22 21:06 - Medical Decision Making This is a 26-year-old -[place] female with a history of asthma presents to the ED with complaint of acute onset persistent intermittent nausea and vomiting with epigastric pain for the last 12 hours after eating fast food from a restaurant. Patient states that he has not been able to keep anything down in the last 8 hours due to persistent intractable nausea and vomiting. In the ED, patient is alert and oriented x3 and is not in any distress. Patient is medically stable. Lab test results were reviewed and are all nonactionable. Patient was treated in the ED with antiemetics, antacids and pain medications. On reevaluation, patient nausea and vomiting resolved, patient passed oral fluid challenge in the ED. Patient was discharged home on antiemetics and advised to maintain a clear liquid diet for 12 to 24 hours, drink plenty of fluids and take antiemetic prescription medication and follow-up with her primary care physician in 5 to 7 days for reevaluation. Patient was advised return to the ED i mmediately if symptoms get worse. - Differential Diagnosis Viral gastroenteritis; dehydration; GERD; UTI; Critical care attestation.: If time is entered above; I have spent that time in minutes in the direct care of this critically ill patient, excluding procedure time. ED Disposition Clinical Impression: Nausea and vomiting in adult patient, Viral gastroenteritis Disposition: 01 HOME / SELF CARE / HOMELESS Is pt being admited?: No Does the pt Need Aspirin: No Condition: Stable Instructions: Viral Gastroenteritis, Adult, [id number], Nausea and Vomiting, Adult, [id number] Additional Instructions: All lab test results were reviewed and are all nonactionable. Your symptoms are likely due to viral gastroenteritis from food poisoning. Therefore maintain a clear liquid diet for 12 to 24 hours, take medication as needed for nausea and vomiting and pain, drink plenty of fluids and follow-up with your primary care physician in 5 to 7 days for reevaluation or return to the ED immediately if symptoms get worse. Prescriptions: Dicyclomine [Bentyl] 20 mg PO Q6H PRN #24 tablet PRN Reason: abdominal pain Famotidine [Pepcid] 20 mg PO BID #30 tablet Ondansetron [Zofran Odt] 4 mg PO Q8HR PRN #20 tab.rapdis PRN Reason: Nausea Referrals: [facility] [Provider Group] - 3-5 Days Forms: Work/School Release Form(ED) Time of Disposition: 02:41 Print Language: NIGERIAN
[2022-02-21 03:54] VITALS: BP 134/86
== END 2022-02-21 04:13 | disposition home or self-care (01) ==
LOC: ED 17:51
DX: A08.4 Viral intestinal infection, unspecified (principal); R11.2 Nausea with vomiting, unspecified; J45.909 Unspecified asthma, uncomplicated; Z87.891 Personal history of nicotine dependence; Z79.899 Other long term (current) drug therapy
CPT/HCPCS: 36415; 80053; 81001; 84703; 85025; 96361; 96374; 96375; 99283; J1885; J2405; J3490; J7030

== ENCOUNTER 2022-05-09 14:40 | Emergency (ER) | payer MEDICAID ==
[2022-05-09] MEDS ORDERED: ONDANSETRON 4 MG/2 ML INJ IV ONE (22:14)
[2022-05-09] MEDS ORDERED: KETOROLAC 30 MG/1 ML INJ IV ONE (22:14)
[2022-05-09 22:53] LABS: Basophils % (Auto) 0.5 % (0.0-1.8); Eosinophils % (Auto) 1.1 % (0.0-4.3); Hematocrit 38.5 % (30.3-42.9); Hemoglobin 13.4 gm/dl (10.1-14.3); Lymphocytes # (Auto) 2.1 K/mm3 (1.2-5.4); Lymphocytes % (Auto) 46.6 % (13.4-35.0); Mean Corpuscular HGB Conc 35 % (30-34); Mean Corpuscular Volume 89 fl (79-97); Monocytes # (Auto) 0.3 K/mm3 (0.0-0.8); Monocytes % (Auto) 7.4 % (0.0-7.3); Platelet Count 221 K/mm3 (140-440); Red Blood Count 4.32 M/mm3 (3.65-5.03); Red Cell Distribution Width 12.8 % (13.2-15.2)
[2022-05-09 23:07] LABS: Alanine Aminotransferase 7 units/L (7-56); Blood Urea Nitrogen 15 mg/dL (7-17); Calcium 9.4 mg/dL (8.4-10.2); Hemolysis Index 50
[2022-05-09 23:14] LABS: BUN/Creatinine Ratio 21
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
[2022-05-10 01:57] VITALS: BP 111/78
== END 2022-05-10 01:58 | disposition home or self-care (01) ==
LOC: ED 14:40
DX: S20.219A Contusion of unspecified front wall of thorax, initial encounter (principal); S30.1XXA Contusion of abdominal wall, initial encounter; M62.830 Muscle spasm of back; M62.838 Other muscle spasm; J45.909 Unspecified asthma, uncomplicated; Z87.891 Personal history of nicotine dependence; V89.2XXA Person injured in unspecified motor-vehicle accident, traffic, initial encounter; Y93.89 Activity, other specified; Y92.89 Other specified places as the place of occurrence of the external cause; Y99.8 Other external cause status
CPT/HCPCS: 36415; 71046; 72125; 74177; 80053; 84703; 85025; 96374; 96375; 99284; J1885; J2405; Q9967